=== PATIENT | male | born 1960 | race Caucasian/White ===

== ENCOUNTER → 2020-06-19 14:11 | Outpatient (BNVA) | payer BC, SELFPAY | PROVIDERS: PCP Internal Medicine; Visit Provider Orthopaedic Surgery | DX: M17.12 Unilateral primary osteoarthritis, left knee (principal) | CPT/HCPCS: 20610; J1040 ==

== ENCOUNTER 2020-07-15 12:13 | Outpatient (REF) | payer BC, SELFPAY ==
--- NOTE | 2020-07-16 14:19 | XR_ITS ---
EXAMINATION: XR KNEE STANDING, BILATERAL XR KNEE, RIGHT CLINICAL INFORMATION: Right knee pain. COMPARISON: AP standing and right knee radiographs dated 01/05/2020. TECHNIQUE: AP weightbearing view of the right and left knee as well as lateral view of the right knee. FINDINGS: Total right knee arthroplasty. Normal anatomic alignment. No acute hardware or osseous fracture. No perihardware lucency to suggest loosening or infection. Small joint effusion. Unremarkable AP view of the left knee. XR/XR knee RT 2V IMPRESSION: Total right knee arthroplasty without evidence of hardware complication. Small joint effusion.
--- NOTE | 2020-07-16 14:19 | XR_ITS ---
EXAMINATION: XR KNEE STANDING, BILATERAL XR KNEE, RIGHT CLINICAL INFORMATION: Right knee pain. COMPARISON: AP standing and right knee radiographs dated 01/05/2020. TECHNIQUE: AP weightbearing view of the right and left knee as well as lateral view of the right knee. FINDINGS: Total right knee arthroplasty. Normal anatomic alignment. No acute hardware or osseous fracture. No perihardware lucency to suggest loosening or infection. Small joint effusion. Unremarkable AP view of the left knee. XR/XR knee standing BI IMPRESSION: Total right knee arthroplasty without evidence of hardware complication. Small joint effusion.
== END 2020-07-15 12:14 | disposition home or self-care (01) ==
LOC: HO.HOSX 12:13
PROVIDERS: Visit Provider Orthopaedic Surgery
DX: M25.562 Pain in left knee (principal); M25.561 Pain in right knee
CPT/HCPCS: 73560; 73565

== ENCOUNTER → 2020-07-16 14:18 | Outpatient (BNVA) | payer BC, SELFPAY | PROVIDERS: PCP Internal Medicine; Visit Provider Orthopaedic Surgery | DX: M25.561 Pain in right knee (principal); M25.562 Pain in left knee ==

== ENCOUNTER 2021-07-21 12:09 | Outpatient (REF) | payer BC, SELFPAY ==
--- NOTE | ~2021-07-21 | XR_ITS ---
EXAMINATION: XR KNEE STANDING, BILATERAL XR KNEE, RIGHT CLINICAL INFORMATION: Knee pain. COMPARISON: 07/16/2020 and 01/05/2020 TECHNIQUE: Standing AP view of both knees and lateral and sunrise views of the right knee. FINDINGS: LEFT KNEE: Moderate medial compartment osteoarthritis with nonuniform joint space narrowing, articular cortical irregularity, and marginal osteophytes. More mild lateral compartment osteoarthritis. Mild valgus angulation at the left knee. RIGHT KNEE: Prosthetic components of the total knee arthroplasty are appropriately aligned without periprosthetic fracture. Small joint effusion. A 3 mm rim of osseous lucency is present just deep to the anterior flange of the femoral component, similar to prior allowing for differences in rotation. No new findings of loosening. Tibial component is unremarkable. XR/XR knee standing BI IMPRESSION: Appropriate alignment of the right total knee prosthesis. Small joint effusion. Periprosthetic lucency deep to the anterior flange of the femoral component is similar to prior and likely related to the operative technique. No acute findings. Moderate medial compartment osteoarthritis in the left knee.
--- NOTE | ~2021-07-21 | XR_ITS ---
EXAMINATION: XR KNEE STANDING, BILATERAL XR KNEE, RIGHT CLINICAL INFORMATION: Knee pain. COMPARISON: 07/16/2020 and 01/05/2020 TECHNIQUE: Standing AP view of both knees and lateral and sunrise views of the right knee. FINDINGS: LEFT KNEE: Moderate medial compartment osteoarthritis with nonuniform joint space narrowing, articular cortical irregularity, and marginal osteophytes. More mild lateral compartment osteoarthritis. Mild valgus angulation at the left knee. RIGHT KNEE: Prosthetic components of the total knee arthroplasty are appropriately aligned without periprosthetic fracture. Small joint effusion. A 3 mm rim of osseous lucency is present just deep to the anterior flange of the femoral component, similar to prior allowing for differences in rotation. No new findings of loosening. Tibial component is unremarkable. XR/XR knee RT 2V IMPRESSION: Appropriate alignment of the right total knee prosthesis. Small joint effusion. Periprosthetic lucency deep to the anterior flange of the femoral component is similar to prior and likely related to the operative technique. No acute findings. Moderate medial compartment osteoarthritis in the left knee.
== END 2021-07-21 12:10 | disposition home or self-care (01) ==
LOC: HO.HOSX 12:09
PROVIDERS: Visit Provider Orthopaedic Surgery
DX: Z96.651 Presence of right artificial knee joint (principal)
CPT/HCPCS: 73560; 73565